=== PATIENT | female | born 1955 | race Caucasian/White ===

== ENCOUNTER 2019-03-03 09:56 | Day surgery (SDC) | payer BC, MEDICARE ==
[2019-03-03] MEDS ORDERED: LIDOCAINE 2% MDV (20MG/ML) 20ML VIAL IV ONE (09:57)
[2019-03-03] MEDS ORDERED: FENTANYL PF 100MCG/2ML VIAL IV ONE (09:57)
[2019-03-03] MEDS ORDERED: PROPOFOL 10 MG/ML VIAL IV ONE (09:57)
--- NOTE | 2019-03-04 08:10 | Operative Note ---
OPERATION: 1. ESOPHAGOGASTRODUODENOSCOPY. 2. COLONOSCOPY with cold forceps polypectomy. PREOPERATIVE DIAGNOSES: 1. History of fair-quality colonic preparation in screening. 2. Chronic cough of unclear etiology. POSTOPERATIVE DIAGNOSES: 1. Normal EGD. 2. Good colonic preparation with sigmoid diverticula noted and transverse colon polyp. PREPARATION QUALITY: Good. ESTIMATED BLOOD LOSS: Minimum. SPECIMENS: Transverse colon. COMPLICATIONS: None apparent. PROCEDURE: After informed consent was obtained from the patient, she was placed in the left lateral decubitus position in the endoscopy suite, sedated and monitored by the department of anesthesia. A well-lubricated [id number] gastroscope was placed in the posterior oropharynx under direct visualization and passed to the proximal esophagus. The endoscope was advanced through the proximal, mid, and distal esophagus. The GE junction and esophagus were unremarkable. The gastric body, antrum, pylorus, duodenal bulb, and sweep were unremarkable. J- turn views of the proximal stomach revealed no abnormalities. The endoscope was then straightened and retracted from the patient with no new findings noted. Digital rectal exam was performed which was unremarkable. A well-lubricated [id number] colonoscope was inserted into the rectum and advanced to the cecum. Preparation quality was good. The cecum, cecal bulb, ileocecal valve, appendiceal orifice, ascending colon were unremarkable. In the transverse colon there was a diminutive polyp removed with a cold forceps. The descending colon was unrevealing. The sigmoid colon revealed scattered diverticula. The rectum was unremarkable in forward and J-turn views. The endoscope was straightened, the rectal ampulla deflated, and the endoscope was removed. RECOMMENDATIONS: We will await results of tissue histology but suspect the patient will require repeat colonoscopy in 5 or perhaps 10 years. She should follow a high-fiber diet. In so far as her chronic cough, a trial of a PPI twice daily for 3 months would be suggested. If her cough persists, at that point I would suspect that she has a non-GI, non-reflux etiology for her cough. As always, thank you for allowing me to participate in the healthcare of your patients. [facility]
== END 2019-03-03 11:25 | disposition home or self-care (01) ==
LOC: HOP 09:56
PROVIDERS: ATTEND Internal Medicine Gastroenterology
DX: Z12.11 Encounter for screening for malignant neoplasm of colon (principal); D12.3 Benign neoplasm of transverse colon; K57.30 Diverticulosis of large intestine without perforation or abscess without bleeding; R05 Cough; K21.9 Gastro-esophageal reflux disease without esophagitis; I10 Essential (primary) hypertension; K59.00 Constipation, unspecified